=== PATIENT | female | born 1990 ===

== ENCOUNTER 2017-04-12 11:35 | Emergency (ER) | payer OTHER ==
[2017-04-12 12:03] VITALS: BMI 18.3
[2017-04-12] MEDS ORDERED: Sodium Chloride 0.9% 1,000 ML IV STA ×3 (12:04→15:28)
--- NOTE | 2017-04-12 12:07 | ED PDOC ---
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 had a dental procedure yesterday and started amoxicillin today. 20 min later started getting dyspnea, face swelling, light-headed, weakness all over, nausea, vomit and diarrhea nonbloody, and rash all over with itching. Took benadryl which helped reduce swelling and rash. No numbness, tingles, weakness , headache, chest pain. Dyspnea gone now. No trouble swallowing. No vision changes. Has abd pain like bubbling. No dysuria. Has had amoxicillin before when younger with no issues. Also had a few cucumber pieces today 20 min prior to reaction. No leg pain, long distance travel or hormone tx. Past Medical History Reviewed: Nursing Documentation, Vital Signs Vital Signs: Last Vital Signs Temp 97.5 F L 04/12/17 12:06 Pulse 96 H 04/12/17 14:26 Resp 18 04/12/17 14:26 BP 110/48 L 04/12/17 14:19 Pulse Ox 99 04/12/17 14:26 - Medical History PMH: Asthma - Surgical History Surgical History: No Surg Hx - Family History Family History: States: Unknown Family Hx - Living Arrangements Living Arrangements: With Family - Social History Current smoker - smoking cessation education provided: No Alcohol: None Drugs: Denies - Home Medications Home Medications: Ambulatory Orders Medication Instructions Recorded predniSONE [predniSONE Tab] 20 mg PO BID 5 Days 04/12/17 - Allergies Allergies/Adverse Reactions: Allergies Allergy/AdvReac Type Severity Reaction Status Date / Time amoxicillin Allergy SWELLING Verified 04/12/17 12:39 Review of Systems ROS Statement: Except As Marked, All Systems Reviewed And Found Negative Constitutional: Positive for: Weakness ENT: Positive for: Other (facial swelling) Cardiovascular: Positive for: Light Headedness Respiratory: Positive for: Shortness of Breath Gastrointestinal: Positive for: Nausea, Vomiting, Abdominal Pain, Diarrhea Skin: Positive for: Rash Neurological: Positive for: Weakness, Dizziness Physical Exam - Reviewed Nursing Documentation Reviewed: Yes Vital Signs Reviewed: Yes - Physical Exam Appears: Positive for: Non-toxic, No Acute Distress Head Exam: Positive for: ATRAUMATIC, NORMAL INSPECTION, NORMOCEPHALIC Skin: Positive for: Warm, Dry, Rash (face, upper back, b/l arms with mild blanching erythema, not indurated. No dc. In urticarial pattern) Eye Exam: Positive for: EOMI, Normal appearance, PERRL ENT: Positive for: Other (no tongue or oral swelling). Negative for: Nasal Congestion, Pharyngeal Erythema Neck: Positive for: Normal, Painless ROM, Supple Cardiovascular/Chest: Positive for: Regular Rate, Rhythm, Chest Non Tender. Negative for: Edema Respiratory: Positive for: Normal Breath Sounds. Negative for: Accessory Muscle Use, Wheezing Gastrointestinal/Abdominal: Positive for: Normal Exam, Bowel Sounds, Soft. Negative for: Tenderness Back: Negative for: L CVA Tenderness, R CVA Tenderness Extremity: Positive for: Normal ROM. Negative for: Tenderness, Pedal Edema Neurologic/Psych: Positive for: Alert, parts manager II-XII, Oriented. Negative for: Motor/Sensory Deficits, Aphasia, Facial Droop - Laboratory Results Result Diagrams: 04/12/17 12:15 04/12/17 12:15 Interpretation Of Abn Labs: 3.5k - ECG ECG: Positive for: Interpreted By Me, Viewed By Me ECG Rhythm: Positive for: Normal QRS, Normal ST Segment, Sinus Rhythm - Progress ED Course And Treament: 1346: Still feels dizzy on getting up. No other itching, rash, diarrhea, vomit or other symptoms. Will give anther liter of fluids. Monitor. 1547: Feels better. AAOx3. Ambulated with no issues. Not dizzy. Tolerated po with no issues. Likely had dizziness from taking benadryl 2 pills at home. Disposition - Clinical Impression Clinical Impression: Allergic reaction, Dizziness, Hypokalemia - Patient ED Disposition Is Patient to be Admitted: No Counseled Patient/Family Regarding: Studies Performed, Diagnosis, Need For Followup, Rx Given - Disposition Referrals: [facility] [Outside] - 04/13/17 Disposition: Routine/Home Disposition Time: 15:50 Condition: STABLE Additional Instructions: Return if not better in 3 days. Prescriptions: predniSONE [predniSONE Tab] 20 mg PO BID 5 Days Instructions: Dizziness (ED), General Allergic Reaction (ED), Hypokalemia (ED) Forms: [employer] (Tuvaluan)
[2017-04-12 12:10] VITALS: RESP 18; TEMP 97.5; O2SAT 99
[2017-04-12 12:25] LABS: BASO % 0.2 % (0.0-2.0); EOS # 0.1 K/uL (0.0-0.7); EOS % 0.9 % (0.0-4.0); HEMATOCRIT 43.9 % (34.0-47.0); LYMPH # 4.2 K/uL (1.0-4.3); LYMPH % 47.7 % (20.0-40.0); MEAN CELL VOLUME 88.2 fl (81.0-99.0); MEAN CORPUSCULAR HEMOGLOBIN 29.5 pg (27.0-31.0); MEAN CORPUSCULAR HGB CONC 33.4 g/dL (33.0-37.0); MEAN PLATELET VOLUME 7.8 fl (7.2-11.7); MONO # 0.4 K/uL (0.0-0.8); MONO % 4.5 % (0.0-10.0); NEUT # 4.1 K/uL (1.8-7.0); NEUT % 46.7 % (50.0-75.0); NRBC % 0.2 % (0.0-0.0); RED CELL DISTRIBUTION WIDTH 13.4 % (11.5-14.5); WHITE BLOOD COUNT 8.9 K/uL (4.8-10.8)
[2017-04-12 12:34] LABS: ALB/GLOB RATIO 1.3 (1.0-2.1); ALKALINE PHOSPHATASE 73 U/L (38-126); ALT/SGPT 37 U/L (9-52); AST/SGOT 21 U/L (14-36); BILIRUBIN,TOTAL 0.4 mg/dl (0.2-1.3); BLOOD UREA NITROGEN 16 mg/dl (7-17); CALCIUM 9.3 mg/dL (8.4-10.2); CARBON DIOXIDE 23 mmol/L (22-30); CHLORIDE 103 mmol/L (98-107); GFR AFRICAN-AMERICAN > 60; GLUCOSE,RANDOM 192 mg/dL (65-105); POTASSIUM 3.5 MMOL/L (3.6-5.0); SODIUM 139 mmol/l (132-148); TOTAL PROTEIN 7.6 G/DL (6.3-8.2)
[2017-04-12] MEDS ORDERED: Potassium Chloride 20 mEq ER Tab PO STA (13:42)
[2017-04-12] MEDS ORDERED: Potassium Chloride 20 mEq ER Tab PO ONE (14:15)
[2017-04-12 14:19] VITALS: BP 110/48
[2017-04-12 14:26] VITALS: PULSE 96
--- NOTE | 2017-04-13 17:01 | CARD ---
APPROVED REPORT EKG Measurement Heart [id number] <Conclusion> Normal sinus rhythm with sinus arrhythmia Nonspecific ST and T wave abnormality Abnormal ECG
== END 2017-04-12 16:24 | disposition home or self-care (01) ==
LOC: H.ER 11:35
DX: T78.40XA Allergy, unspecified, initial encounter (principal); R11.2 Nausea with vomiting, unspecified; R19.7 Diarrhea, unspecified; R42 Dizziness and giddiness; E87.6 Hypokalemia